=== PATIENT | male | born 1945 | race Caucasian/White ===

== ENCOUNTER 2024-02-03 08:51 | Day surgery (SDC) | payer MEDICARE, OTHER ==
[2024-02-03] MEDS: Lactated Ringers 1,000 ML IV SCH (09:12)
[2024-02-03] MEDS ORDERED: fentaNYL 100 MCG/2 ML SDV ONE (10:01)
[2024-02-03] MEDS ORDERED: Midazolam 1 MG/ML 2 ML SDV ONE (10:01)
[2024-02-03] MEDS ORDERED: Propofol 200 MG/20 ML SDV ONE (10:02)
== END 2024-02-03 11:57 | disposition home or self-care (01) ==
LOC: VM.SDS 08:51
PROVIDERS: ATTEND Family Medicine
DX: Z12.11 Encounter for screening for malignant neoplasm of colon (principal); D12.6 Benign neoplasm of colon, unspecified; K57.30 Diverticulosis of large intestine without perforation or abscess without bleeding; K21.00 Gastro-esophageal reflux disease with esophagitis, without bleeding; N52.9 Male erectile dysfunction, unspecified; F17.220 Nicotine dependence, chewing tobacco, uncomplicated; Z79.899 Other long term (current) drug therapy; Z88.0 Allergy status to penicillin
CPT/HCPCS: 00811; 99100; J2250; J2704; J3010; J7120